=== PATIENT | male | born 1945 | race Caucasian/White ===

== ENCOUNTER 2019-03-14 06:46 | Day surgery (SDC) | payer MEDICARE, OTHER ==
--- NOTE | 2019-03-08 09:50 | HP ---
PREOPERATIVE HISTORY AND PHYSICAL: DATE OF SURGERY/ADMISSION: 03/14/19 - [facility] DATE OF OFFICE VISIT/ENCOUNTER: 02/23/19 ATTENDING SURGEON: Kaylee Espinoza MD * (DICTATED BY ELINA CONTRERAS) PROCEDURE: Left wrist carpal tunnel release. HISTORY OF PRESENT ILLNESS: This is a 73-year-old male who complains of numbness and tingling in his left hand that has been ongoing for several years. Recently, it has gotten much worse. He denies any injury. He has a lot of trouble sleeping at night and holding on to things. He has had a nerve conduction study that showed severe left carpal tunnel syndrome. He has recently undergone a right carpal tunnel release and has done quite well with that. He has not consented to proceed with left wrist carpal tunnel syndrome. PAST MEDICAL HISTORY: 1. Cervical spondylosis. 2. Hyperlipidemia. 3. Hypertension. 4. Osteoarthritis. 5. History of hepatitis B. PAST SURGICAL HISTORY: 1. Right carpal tunnel release. 2. Cholecystectomy. 3. Bilateral shoulder replacements. 4. Femoral rodding. 5. Abdominal surgery. 6. Back surgery. CURRENT MEDICATIONS: 1. Baclofen 20 mg 3 times a day. 2. Carvedilol 12.5 mg twice a day. 3. Gabapentin 300 mg 3 times a day. 4. Hydroxyzine HCl 25 mg q.6 to 8 hours p.r.n. anxiety. 5. Losartan potassium 100 mg daily. 6. Multivitamin daily. 7. Omeprazole 20 mg daily. 8. Simvastatin 40 mg daily. 9. Tamsulosin HCl 0.4 mg daily. 10. Vitamin D 2000 units daily. 11. Zolpidem tartrate 10 mg daily. ALLERGIES: No known drug allergies. FAMILY MEDICAL HISTORY: Heart disease, hypertension, cancer. SOCIAL HISTORY: The patient lives with daughter. He is retired. He is a former smoker. He drinks approximately 10 alcoholic beverages per week. He denies recreational drug use. REVIEW OF SYSTEMS: Negative for general, cephalic, cardiovascular, respiratory , GI, , other musculoskeletal, integumentary, endocrine, neurologic, and hematologic symptoms. Infectious Disease: Negative for MRSA, hepatitis C, HIV. PHYSICAL EXAMINATION GENERAL: Well-developed, well-nourished, 73-year-old male, in no acute distress. VITAL SIGNS: Height 6 feet 10 inches, weight 225 pounds, blood pressure 124/68 , pulse rate 68. HEENT: Normocephalic, atraumatic. Pupils are equal, round, and reactive to light and accommodation. Extraocular movements are intact. Throat is clear. NECK: Supple. No palpable lymph nodes. PULMONARY: Lungs are clear to auscultation bilaterally. No wheezes, rales, or rhonchi. CARDIOVASCULAR: Regular rate and rhythm. S1, S2. No murmurs, rubs, or gallops. No edema. ABDOMEN: Positive bowel sounds, soft, nontender. NEUROLOGICAL: Alert and oriented x3. Cranial nerves II through XII are intact. Sensation is intact to light touch. MUSCULOSKELETAL: On exam of his left wrist and hand, he has no visible wasting at the thenar eminence but mild weakness with thumb abduction. He has a positive Tinel's and median nerve compression at the wrist. Negative Tinel's at the elbow. He has good motion in his fingers and wrist. Sensation is intact to light touch throughout the hand. DIAGNOSTIC STUDIES/LAB DATA: EMG nerve conduction study showed significant carpal tunnel syndrome, left wrist. IMPRESSION: As above. PLAN: The patient is scheduled to undergo left wrist carpal tunnel release with Dr. Espinoza on on 03/14/19. He will return to the office 10 days postop for followup and suture removal. A prescription for tramadol was e-scribed to the patient's pharmacy for postoperative pain management. ELINA CONTRERAS [id number]/[facility] #: [id number] [place]
[~2019-03-14 06:46] MED LIST: Buffered Lidocaine 1% SYRIN* 1 ML/SYRINGE INTRADERM ONE; Famotidine IV* 10 MG/ML 2 ML (20 mg) IV ONE; Famotidine IV* 10 MG/ML 2 ML (20 mg) ONE; Lactated Ringers 1000 ML Bag* 1,000 ML IV SCH
[2019-03-14] MEDS ORDERED: Lidocaine 1% INJ* 10 MG/ML 30 ML SDV ONE (06:55)
[2019-03-14] MEDS ORDERED: Midazolam* 1 MG/ML 5 ML VIAL (5 MG) ONE (07:26)
[2019-03-14] MEDS ORDERED: Lidocaine 2% PF * 5 ML VIAL ONE (07:28)
[2019-03-14] MEDS ORDERED: Propofol* 10 MG/ML 20 ML BTL ONE (07:28)
[2019-03-14] MEDS ORDERED: Ketorolac INJ* 30 MG/ML 1 ML VIAL ONE (07:28)
[2019-03-14] MEDS ORDERED: Acetaminophen TAB* 325 MG PO PRN (08:02)
[2019-03-14 08:38] VITALS: BP 132/65
--- NOTE | 2019-03-14 09:41 | OP ---
CC: Dr. Espinoza* OPERATIVE REPORT: DATE OF OPERATION: 03/14/19 - [facility] DATE OF : 49 SURGEON: Kaylee Espinoza MD. SERVICE CAR DRIVER: ELINA Pickering. ANESTHESIOLOGIST: Aster Cole MD. ANESTHESIA: Local MAC. PRE-OP DIAGNOSIS: Left carpal tunnel syndrome. POST-OP DIAGNOSIS: Left carpal tunnel syndrome. OPERATIVE PROCEDURE: Left carpal tunnel release. ESTIMATED BLOOD LOSS: Zero. TOURNIQUET TIME: Approximately 10 minutes. INDICATIONS FOR PROCEDURE: Jose is a 73-year-old man who has numbness and tingling in the median nerve distribution of his left hand. He presents for left carpal tunnel release. DESCRIPTION OF PROCEDURE: The patient was brought to the operating room, was given a sedation anesthetic and a local infiltration of 10 cc of 1% plain lidocaine in the palm of his left hand. Skin of his left hand was prepped and draped in the usual sterile fashion. The hand and forearm were exsanguinated and the tourniquet elevated to 250 mmHg. A longitudinal incision was made in the palm in line with the right finger. We dissected through the subcutaneous tissue down to the transverse carpal ligament. The ligament was divided sharply with a knife and then more proximally with the scissors. The nerve was dissected free from the surrounding tissue and there was an area of moderate compression at the mid portion of the ligament. The wound was irrigated and the skin edges reapproximated with 4- 0 nylon suture. The wound was dressed with Xeroform, 4x4, Webril, and an William wrap. The patient tolerated the procedure well and was brought to the recovery room in good condition. [id number]/[facility] #: [id number] [facility]
== END 2019-03-14 08:38 | disposition home or self-care (01) ==
LOC: OREAST 06:46
PROVIDERS: ATTEND Orthopaedic Surgery
DX: G56.02 Carpal tunnel syndrome, left upper limb (principal); I10 Essential (primary) hypertension; M19.90 Unspecified osteoarthritis, unspecified site; E78.5 Hyperlipidemia, unspecified; M47.812 Spondylosis without myelopathy or radiculopathy, cervical region; Z87.891 Personal history of nicotine dependence; G47.33 Obstructive sleep apnea (adult) (pediatric); K21.9 Gastro-esophageal reflux disease without esophagitis
CPT/HCPCS: J1885; J2250; J2704

== ENCOUNTER 2019-12-26 06:07 | Observation (INO) ==
[~2019-12-26 06:07] MED LIST changes: -Buffered Lidocaine 1% SYRIN* 1 ML/SYRINGE INTRADERM ONE; -Famotidine IV* 10 MG/ML 2 ML (20 mg) IV ONE; -Famotidine IV* 10 MG/ML 2 ML (20 mg) ONE; -Lactated Ringers 1000 ML Bag* 1,000 ML IV SCH; +Lactated Ringers 1000 ml BAG 1,000 ML IV SCH
[2019-12-26] MEDS ORDERED: Bacitracin INJECTION 50,000 UNITS ONE (06:46)
[2019-12-26] MEDS ORDERED: ceFAZolin 2 GM PREMIX in ORs 2 GM/50 ML BAG ONE (06:48)
[2019-12-26] MEDS ORDERED: Buffered Lidocaine 1% SYRIN 1 ml INTRADERM ONE (06:49)
[2019-12-26] MEDS ORDERED: Propofol 10 MG/ML 20 ML BTL ONE (06:50)
[2019-12-26] MEDS ORDERED: Dexamethasone IV 4 MG/ML VIAL 1 ml VIAL ONE (06:51)
[2019-12-26] MEDS ORDERED: fentaNYL 100 mcg/2 ml 50 MCG/ML VIAL ONE ×2 (06:51)
[2019-12-26] MEDS ORDERED: Ondansetron 4 mg VIAL 2 MG/ML 2 ml VIAL ONE (06:51)
[2019-12-26] MEDS ORDERED: Rocuronium 50 mg VIAL 10 mg/ml 5 ml VIAL (50 mg) ONE (06:51)
[2019-12-26] MEDS ORDERED: Prochlorperazine 5 mg/ml 2 ml VIAL (10 mg) IV PRN (08:47)
[2019-12-26] MEDS ORDERED: Naloxone 0.4 mg VIAL 0.4 mg/ml 1 ml VIAL IV PRN (08:47)
[2019-12-26] MEDS ORDERED: diPHENhydraMINE IV 50 MG/ML 1 ml VIAL (BENADRYL) IV PRN (08:47)
[2019-12-26] MEDS ORDERED: EPHEDrine (Pressors) 50 MG/ML VIAL ONE (09:06)
[2019-12-26] MEDS ORDERED: HYDROmorphone 1 MG/1 ML SYRINGE ONE ×2 (09:35→12:10)
[2019-12-26] MEDS: HYDROmorphone 1 MG/1 ML SYRINGE IV PRN ×2 (12:13→12:24)
[2019-12-26] MEDS ORDERED: HYDROcodone/ACETAMIN 5/325 mg TAB PO PRN (12:34)
[2019-12-26] MEDS ORDERED: Ondansetron 4 mg VIAL 2 MG/ML 2 ml VIAL IV PRN (12:34)
[2019-12-26] MEDS ORDERED: Magnesium Hydroxide LIQ 30 ML UDC PO PRN (12:34)
[2019-12-26] MEDS ORDERED: Prochlorperazine 5 mg/ml 2 ml VIAL (10 mg) ONE (13:01)
[2019-12-26] MEDS: HYDROcodone/ACETAMIN 5/325 mg TAB PO PRN ×2 (15:28→20:50)
[2019-12-27] MEDS: HYDROcodone/ACETAMIN 5/325 mg TAB PO PRN ×3 (02:54→11:16)
[2019-12-27 10:58] VITALS: BP 104/54
== END 2019-12-27 11:00 | disposition home or self-care (01) ==
LOC: AA 06:07 → INTOOBSV 06:07 → SSU 14:04
PROVIDERS: ADMIT Neurological Surgery; ATTEND Internal Medicine